=== PATIENT | male | born 1970 | race Caucasian/White ===

== ENCOUNTER 2020-10-02 23:54 | Emergency (ER) | payer OTHER, SELFPAY ==
[2020-10-02 23:53] VITALS: BP 153/100; PULSE 95; RESP 16; TEMP 36.9; O2SAT 98; BMI 27.8
[2020-10-03 00:23] VITALS: BP 137/89; PULSE 71; RESP 16; O2SAT 98
--- NOTE | 2020-10-03 00:40 | [facility].EDOD ---
ED Disposition Clinical Impression: Poisoning by opiate or related narcotic Disposition: Home, Self-Care Condition on Discharge: Good Instructions: DI for Drug Overdose in Adults Additional Instructions: see pcp for follow up Referrals: PCP,Lula [Primary Care Provider] - - Critical Care Critical Care Time: No Attestation: On 10/02/20, the high probability of a clinically significant, sudden or life threatening deterioration of the following system(s) required my full and direct attention, intervention and personal management. The time I documented below is in addition to time spent performing reported procedures but includes the following listed in this critical care notation. Medical Decision Making - Medical Records Medical records reviewed: Yes: I reviewed the patient's medical records. - Hemant Inquiry Pt receiving controlled substance: No Vital Signs: 10/02/20 23:53 10/03/20 00:23 Temperature 98.4 F Temperature Source Oral Pulse Rate [Left Radial] 95 H 71 Respiratory Rate 16 16 Blood Pressure [Right Arm] 153/100 H 137/89 Blood Pressure Mean [Right Arm] 117 105 Blood Pressure Source [Right Arm] Automatic Cuff Automatic Cuff Blood Pressure Position [Right Arm] Sitting Sitting 02 Sat by Pulse Oximetry 98 98 Oxygen Delivery Method Room Air Room Air Overdose HPI - General Chief Complaint: Overdose Stated Complaint: drug exposure Time Seen by Provider: 10/03/20 00:20 Mode of Arrival: EMS Source of Information: Patient, EMS, Medical Record Limitations: No Limitations Description of Symptoms (Recalled from ER Triage Doc. by RN): pt was in a house tonight where they were exposed to a powdered white substance. pt stated he immediately felt tired, dizzy and like his face was tingling. pt was given 0.5mg of narcan nasally via EMS on scene. pt denies tiredness now but still complains of facial tingling and stated i still dont feel right. 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 I have reviewed the patient's past medical history: Yes ROS Obtained: Yes All systems reviewed & no additional complaints Physical Exam - General General appearance: alert, in no apparent distress - Head Head exam: normocephalic - Eye Eye exam: Present: PERRL, EOMI - ENT ENT exam: Present: mucous membranes moist - Neck Neck exam: Present: trachea midline - Respiratory Respiratory exam: Absent: respiratory distress - Cardiovascular Cardiovascular exam: Present: regular rate - Abdominal Exam Abdominal exam: Present: soft - Extremities Exam Extremities exam: Present: full ROM - Neurological Exam Neurological exam: Present: alert, oriented X3, CN II-XII intact - Psychiatric Psychiatric exam: Present: normal affect - Skin Skin exam: Absent: rash Critical Care Time Critical Care Time: No
[2020-10-03 01:58] VITALS: BP 132/85; PULSE 87; RESP 16; TEMP 36.7; O2SAT 98
== END 2020-10-03 02:00 | disposition home or self-care (01) ==
PROVIDERS: Emergency Provider Emergency Medicine
DX: R42 Dizziness and giddiness (principal); T40.601A Poisoning by unspecified narcotics, accidental (unintentional), initial encounter; Y92.89 Other specified places as the place of occurrence of the external cause; Y99.0 Civilian activity done for income or pay
CPT/HCPCS: 99282